=== PATIENT | male | born 1970 | race Caucasian/White ===

== ENCOUNTER 2019-09-14 07:50 | Emergency (ER) | payer BC ==
[2019-09-14 08:11] VITALS: BP 122/76
--- NOTE | 2019-09-14 08:40 | UC ---
Upper Extremity HPI - HPI Summary HPI Summary: pain right forearm x 1 week pain is 4 out of 10 s/p fall on ice and fell on his right arm + pain and swelling of right forearm increase pain with lifting , moving his right arm pain better with rest, ice, - History of Current Complaint Chief Complaint: UCUpperExtremity Stated Complaint: RIGHT FOREARM PAIN Time Seen by Provider: 09/14/19 08:14 Hx Obtained From: Patient Onset/Duration: Sudden Onset, Lasting Weeks - 1, Still Present Severity Initially: Moderate Severity Currently: Moderate Pain Intensity: 4 Location Of Pain: Is Discrete @ - right forearm Character: Dull, Aching Aggravating Factor(s): Movement, Lifting, Flexion, Extension Alleviating Factor(s): OTC Meds, Rest Associated Signs And Symptoms: Positive: Swelling, Weakness. Negative: Redness , Bruising, Fever, Numbness/Tingling - Allergies/Home Medications Allergies/Adverse Reactions: Allergies Allergy/AdvReac Type Severity Reaction Status Date / Time No Known Allergies Allergy Verified 09/14/19 08:07 Home Medications: Home Medications Naproxen Sodium [Aleve] 2 tab PO ONCE 09/14/19 [History Confirmed 09/14/19] PMH/Surg Hx/FS Hx/Imm Hx Previously Healthy: Yes - Surgical History Surgical History: None - Family History Known Family History: Negative: Diabetes - Social History Alcohol Use: Weekly Substance Use Type: None Smoking Status (MU): Heavy Every Day Tobacco Smoker Amount Used/How Often: 1/2 ppd Review of Systems All Other Systems Reviewed And Are Negative: Yes Is Patient Immunocompromised?: No Physical Exam Triage Information Reviewed: Yes Appearance: Well-Appearing, No Pain Distress, Well-Nourished Vital Signs: Initial Vital Signs Temp 98 F 09/14/19 08:07 Pulse 70 09/14/19 08:07 Resp 14 09/14/19 08:07 BP 122/76 09/14/19 08:07 Pulse Ox 100 09/14/19 08:07 Vital Signs Reviewed: Yes Eye Exam: Normal Eyes: Positive: Conjunctiva Clear ENT: Positive: Normal ENT inspection, Hearing grossly normal, Pharynx normal Neck exam: Normal Neck: Positive: Supple Respiratory: Positive: Chest non-tender, Lungs clear, Normal breath sounds Cardiovascular: Positive: RRR, No Murmur, Pulses Normal Musculoskeletal: Positive: Other: - right forearm : + swelling, diffuse tenderness, good ROM on supination / pronation , wrist flexion and extension , normal strength Diagnostics - Radiology No standard instances Radiology Interpretation Completed By: Radiologist Summary of Radiographic Findings: xray report right forearm: IMPRESSION: No fracture of the right forearm is noted. Upper Extremity Course/Dx - Differential Dx/Diagnosis Provider Diagnosis: Sprain of right forearm Discharge ED - Sign-Out/Discharge Documenting (check all that apply): Patient Departure All imaging exams completed and their final reports reviewed: Yes - Discharge Plan Condition: Stable Disposition: HOME Patient Education Materials: Arm Pain (ED) Referrals: Yeison Jorge MD [Primary Care Provider] - 2 Weeks Additional Instructions: normal right forearm xray sprain / strain right forearm cont. with rest, ice, take Ibuprofen as needed for pain follow up with your pcp in 2 weeks - Billing Disposition and Condition Condition: STABLE Disposition: Home
== END 2019-09-14 09:10 | disposition home or self-care (01) ==
LOC: UCCORT 07:50
DX: S53.491A Other sprain of right elbow, initial encounter (principal); W00.0XXA Fall on same level due to ice and snow, initial encounter; Y92.9 Unspecified place or not applicable
CPT/HCPCS: 99201; G0463